=== PATIENT | female | born 1955 | race Caucasian/White ===

== ENCOUNTER 2019-07-23 09:29 | Outpatient (CLI) | payer OTHER ==
--- NOTE | 2019-07-26 05:16 | Ultrasound Report ---
Reason: ELEVATED LIVER ENZYME LEVEL Procedure Date: 07/23/2019 Accession Number: [id number] / [id number] Procedure: US - Abdomen Limited CPT Code: FULL RESULT: EXAM: ABDOMEN ULTRASOUND LIMITED, RUQ EXAM DATE: 07/23/2019 10:30 AM. CLINICAL HISTORY: ELEVATED LIVER ENZYME LEVEL. COMPARISON: None. TECHNIQUE: Real-time scanning was performed with static images obtained. FINDINGS: Liver: Normal in size and echotexture. 16.1 cm. Incidental 1.1 cm cyst in the left lobe. Main portal vein flow: Hepatopetal. Gallbladder: Cholelithiasis. No wall thickening or paracholecystic fluid. Biliary System: CBD measures 7 mm. No intrahepatic or extrahepatic ductal dilatation. Other: None. IMPRESSION: Incidental cyst in the left lobe of the liver. Cholelithiasis, without sonographic evidence of acute cholecystitis or biliary obstruction. RADIA
== END 2019-07-23 09:30 | disposition home or self-care (01) ==
LOC: DI 09:29
PROVIDERS: ATTEND Internal Medicine
DX: K80.20 Calculus of gallbladder without cholecystitis without obstruction (principal)
CPT/HCPCS: 76705

== ENCOUNTER 2019-07-23 09:33 | Outpatient (CLI) | payer OTHER ==
--- NOTE | 2019-07-29 11:43 | Mammography Report ---
Reason: SCREENING MAMMO Procedure Date: 07/23/2019 Accession Number: [id number] / [id number] Procedure: VU - Screening Mammo w/Grady CPT Code: FULL RESULT: EXAM: Screening Mammo w/Grady DATE: 07/23/2019 11:33 AM CLINICAL HISTORY: Routine screening, history of breast reduction surgery. TECHNIQUE: (B) - Bilateral CC and MLO views were obtained. COMPARISON: 06/17/2017, 02/08/2016, 01/23/2010 PARENCHYMAL PATTERN: (D) - The breasts demonstrate heterogeneously dense fibroglandular parenchyma bilaterally. FINDINGS: No significant interval change. Postreduction tissue asymmetries are similar to previous. Left more numerous than right scattered benign-appearing calcifications are also stable. There are no new suspicious masses, calcifications, or areas of distortion. IMPRESSION: Benign findings. BI-RADS category 2. RECOMMENDATION: (ANNUAL) - Recommend routine annual screening mammography. BI-RADS CATEGORY: (2) - Benign Findings. STANDARD QUALIFYING STATEMENTS: 1. This examination was not reviewed with the aid of Computer-Aided Detection (CAD). 2. A negative or benign imaging report should not preclude biopsy if clinically suspicious findings are present. 3. Dense breasts may obscure an underlying neoplasm. 4. This examination was reviewed with the aid of 3D breast imaging (tomosynthesis).
== END 2019-07-23 09:34 | disposition home or self-care (01) ==
LOC: DI 09:33
PROVIDERS: ATTEND Internal Medicine
DX: Z12.31 Encounter for screening mammogram for malignant neoplasm of breast (principal)
CPT/HCPCS: 77063; 77067

== ENCOUNTER 2020-07-09 13:16 | Outpatient (CLI) | payer MEDICARE ==
--- NOTE | 2020-07-10 14:47 | Mammography Report ---
BILATERAL DIGITAL SCREENING MAMMOGRAM 3D/2D: 07/09/2020 CLINICAL: Routine screening. Comparison is made to exams dated: 07/23/2019 mammogram and 06/17/2017 mammogram - [facility]. The tissue of both breasts is heterogeneously dense. This may lower the sensitivity of m ammography. No significant masses, calcifications, or other findings are seen in either breast. There has been no significant interval change. IMPRESSION: NEGATIVE There is no mammographic evidence of malignancy. A 1 year screening mammogram is recommended. This exam was interpreted at Station ID: [id number]. NOTE: For mammograms, a report in lay terms will be sent to the patient. Approximately 15% of breast malignancies will not be visualized mammographically. In the management of a palpable breast mass, a negative mammogram must not discourage biopsy of a clinically suspicious lesion. Electronically Signed By: Morro Walker M.D. aty/estelarad:07/10/2020 13:30:11 ACR BI-RADS Category 1: Negative 3341F PARENCHYMAL PATTERN: (D) - The breast(s) demonstrate(s) heterogeneously dense fibroglandular wilfrido silveira. BI-RADS CATEGORY: (1) - 1 RECOMMENDATION: (ANNUAL) - Recommend routine annual screening mammography. [id number] 1 year screening LATERALITY: (B)
== END 2020-07-09 13:17 | disposition home or self-care (01) ==
LOC: DI 13:16
PROVIDERS: ATTEND Family Medicine
DX: Z12.31 Encounter for screening mammogram for malignant neoplasm of breast (principal)
CPT/HCPCS: 77063; 77067

== ENCOUNTER 2020-08-15 12:14 | Outpatient (CLI) | payer MEDICARE ==
--- NOTE | 2020-08-15 15:46 | XRAY Report ---
PROCEDURE: Knee 3 View LT INDICATIONS: PAIN IN LEFT KNEE TECHNIQUE: 3 views of the left knee(s) were acquired. COMPARISON: None. FINDINGS: Bones: No fractures or dislocations, but there is a mild degree of joint space narrowing involving t he medial compartment, and elsewhere the joint appears normal.. No suspicious bony lesions. Soft tissues: No joint effusion. No suspicious soft tissue calcifications. IMPRESSION: Only a small degree of medial compartment knee joint osteoarthritic joint space narrowin g is found without evidence of prior trauma. Reviewed by: Loc Singh MD on 08/15/2020 3:44 PM PST Approved by: Loc Singh MD on 08/15/2020 3:44 PM PST Station ID: [id number]
== END 2020-08-15 12:15 | disposition home or self-care (01) ==
LOC: DI 12:14
PROVIDERS: ATTEND Nurse Practitioner Family
DX: M17.12 Unilateral primary osteoarthritis, left knee (principal)

== ENCOUNTER 2020-08-25 12:47 | Outpatient (CLI) | payer MEDICARE ==
--- NOTE | 2020-08-25 15:00 | MRI Report ---
PROCEDURE: Knee LT W/O INDICATIONS: Knee injury. TECHNIQUE: Noncontrast sagittal PD fast spin echo and T2 fast spin echo with fat saturation, sagittal 3-D gradie nt sequence with fat saturation; coronal T1 spin echo and PD fast spin echo with fat saturation, and axial PD fast spin echo with fat saturation through the knee. COMPARISON: Left knee plain films dated 08.15.20 FINDINGS: Image quality: Excellent. Menisci: Linear oblique high signal intensity within the medial meniscal body and posterior horn is p resent demonstrating inferior articular surface extension, indicating oblique tearing. Amorphous high signal intensity within the free edge of the lateral meniscal body is present, demonstrating superio r and inferior articular surface extension, indicating degenerative tearing. Cruciate ligaments: The anterior and posterior cruciate ligaments appear intact. Medial structures: There is high-grade tearing of the anterior fibers of the medial collateral ligame nt mid/superior aspects. Visualized portions of the pes anserinus tendons appear normal. No abnormal bursal fluid. Lateral structures: The lateral collateral ligament, long and short heads of the biceps femoris tend on appear intact. The popliteus tendon appears normal. Iliotibial band appears normal. Anterior structures: The quadriceps and patellar tendons appear intact. Patella aric is present. No femoral trochlear dysplasia or ventral trochlear prominence. Moderate edema in the superolateral asp ect of the infrapatellar fat pad. Bones and cartilage: No displaced fracture. There is mild ill-defined T2 signal elevation within the posterior nonweightbearing aspect of the lateral femoral condyle. Mild tricompartmental periarticula r osteophyte formation. Mild articular cartilage loss overlies the weightbearing aspects of the media l femoral condyle and medial tibial plateau. Articular cartilage fibrillation overlies the lateral pa tellar facet. Joint space: There is physiologic knee joint fluid. No [place]?s cyst. Normal appearing synovial pli are incidentally noted. IMPRESSION: 1. Contusion within the lateral femoral condyle posteriorly. No displaced fracture. 2. Medial and lateral meniscal tearing. 3. Medial collateral ligament tear. 4. Findings consistent with lateral patellofemoral friction syndrome in the appropriate clinical sett ing. 5. Tricompartmental osteoarthritis with associated articular cartilage loss. Reviewed by: Wang Rizzo MD on 08/25/2020 1:59 PM [place] Approved by: Wang Rizzo MD on 08/25/2020 1:59 PM [place] Station ID: [id number]
== END 2020-08-25 12:48 | disposition home or self-care (01) ==
LOC: DI 12:47
PROVIDERS: ATTEND Nurse Practitioner Family
DX: S80.01XA Contusion of right knee, initial encounter (principal); S83.242A Other tear of medial meniscus, current injury, left knee, initial encounter; S83.282A Other tear of lateral meniscus, current injury, left knee, initial encounter; M17.12 Unilateral primary osteoarthritis, left knee

== ENCOUNTER 2021-01-26 11:52 | Outpatient (CLI) | payer MEDICARE ==
--- NOTE | 2021-01-26 12:50 | XRAY Report ---
PROCEDURE: Hip w/Pelvis 2-3V RT INDICATIONS: right hip joint pain TECHNIQUE: AP pelvis with lateral view(s) of the right hip(s). COMPARISON: None. FINDINGS: Bones: No fractures or dislocations. Asymmetric right worse than left bilateral hip joint osteoarth ritic changes are seen. No evidence of avascular necrosis of femoral head. Degenerative disc disease in visualized lower lumbar spine is seen. Pelvic ring appears intact. No suspicious bony lesions. Soft tissues: The visualized bowel gas pattern is normal. No suspicious soft tissue calcifications. IMPRESSION: Right worse than left bilateral hip joint osteoarthritis. No fracture or dislocation. No evidence of avascular necrosis. Degenerative disc disease in lower lumbar spine. Reviewed by: Jerrell Mayer MD on 01/26/2021 12:49 PM PDT Approved by: Jerrell Mayer MD on 01/26/2021 12:49 PM PDT Station ID: [id number]
== END 2021-01-26 11:53 | disposition home or self-care (01) ==
LOC: DI 11:52
PROVIDERS: ATTEND Physician Assistant
DX: M16.0 Bilateral primary osteoarthritis of hip (principal); M51.36 Other intervertebral disc degeneration, lumbar region

== ENCOUNTER 2022-06-13 15:15 | Outpatient (CLI) | payer MEDICARE ==
--- NOTE | 2022-06-13 23:32 | XRAY Report ---
PROCEDURE: Lumbar Spine 2 View INDICATIONS: POSTMENOPAUSAL, RIGHT HIP AND BACK PAIN TECHNIQUE: 2 views of the lumbar spine were acquired. COMPARISON: None available FINDINGS: Bones: 5 [id number] vertebrae are present. There is normal bony alignment. No vertebral body compression fractures. No suspicious bony lesions. Severe multilevel disc height loss with endplate sclerosis and spurring. Moderate facet joint arthropathy at the L5-S1 level. Diffuse osteopenia. Soft tissues: Overlying bowel gas pattern is normal. No suspicious soft tissue calcifications. IMPRESSION: Multilevel lumbar spine spondylosis. Reviewed by: SANTANA Ureña on 06/13/2022 11:37 PM PDT Approved by: Joi Strickland MD on 06/13/2022 11:37 PM PDT Station ID: [id number]
--- NOTE | 2022-06-13 23:32 | XRAY Report ---
PROCEDURE: Hip w/Pelvis 2-3V RT INDICATIONS: POSTMENOPAUSAL, RIGHT HIP AND BACK PAIN TECHNIQUE: AP pelvis with lateral view(s) of the right hip(s). COMPARISON: None available. FINDINGS: Bones: No fractures or dislocations. Pelvic ring appears intact. No suspicious bony lesions. Sever e asymmetric right hip joint space narrowing with periarticular osteophyte formation. Moderate left h ip joint degeneration. Soft tissues: The visualized bowel gas pattern is normal. No suspicious soft tissue calcifications. IMPRESSION: Severe right and moderate left hip joint degeneration. Reviewed by: SANTANA Ureña on 06/13/2022 11:37 PM PDT Approved by: Joi Strickland MD on 06/13/2022 11:37 PM PDT Station ID: [id number]
--- NOTE | 2022-06-13 23:32 | XRAY Report ---
PROCEDURE: Thoracic Spine 2 View INDICATIONS: POSTMENOPAUSAL, RIGHT HIP AND BACK PAIN TECHNIQUE: 2 views of the thoracic spine were acquired. COMPARISON: None available FINDINGS: Bones: No fractures or dislocations. No suspicious bony lesions. 12 pairs of ribs are noted, and a ppear intact where visualized. Mild multilevel disc height loss with endplate sclerosis and spurring . Soft tissues: No paravertebral stripe thickening. IMPRESSION: Mild multilevel disc degeneration. Reviewed by: SANTANA Ureña on 06/13/2022 11:38 PM PDT Approved by: Joi Strickland MD on 06/13/2022 11:38 PM PDT Station ID: [id number]
== END 2022-06-13 15:16 | disposition home or self-care (01) ==
LOC: DI 15:15
PROVIDERS: ATTEND Nurse Practitioner Family
DX: M16.0 Bilateral primary osteoarthritis of hip (principal); M51.36 Other intervertebral disc degeneration, lumbar region; M47.816 Spondylosis without myelopathy or radiculopathy, lumbar region; M85.88 Other specified disorders of bone density and structure, other site; M51.34 Other intervertebral disc degeneration, thoracic region

== ENCOUNTER 2022-07-11 11:00 | Outpatient (CLI) | payer MEDICARE ==
--- NOTE | 2022-07-12 12:15 | Mammography Report ---
BILATERAL DIGITAL SCREENING MAMMOGRAM 3D/2D: 07/11/2022 CLINICAL: Routine screening. Comparison is made to exams dated: 07/09/2020 mammogram, 07/23/2019 mammogram, and 06/17/2017 mammogra m - [facility]. Both breasts are heterogeneously dense, which may obscure small masses (category c / 51-75% glandula r tissue). There are calcifications in both breasts. No significant masses, calcifications, or other findings are seen in either breast. There has been no significant interval change. IMPRESSION: BENIGN There is no mammographic evidence of malignancy. A 1 year screening mammogram is recommended. Based on the Tyrer Cuzick model (a risk assessment model) the patients lifetime risk is 14.4% and he r 10 year risk is 8.7%. According to the ACR, ACS, and NCCN guidelines, an annual breast MRI exam ludy ng with mammogram is recommended if the patients lifetime risk is 20% or greater. This exam was interpreted at Station ID: [id number]. NOTE: For mammograms, a report in lay terms will be sent to the patient. Approximately 15% of breast malignancies will not be visualized mammographically. In the management of a palpable breast mass, a negative mammogram must not discourage biopsy of a clinically suspicious lesion. Electronically Signed By: Morro Walker M.D. aty/:07/11/2022 12:46:49 ACR BI-RADS Category 2: Benign Finding(s) 3342F PARENCHYMAL PATTERN: (D) - The breast(s) demonstrate(s) heterogeneously dense fibroglandular wilfrido silveira. BI-RADS CATEGORY: (2) - 2 RECOMMENDATION: (ANNUAL) - Recommend routine annual screening mammography. [id number] 1 year screening LATERALITY: (B)
== END 2022-07-11 11:01 | disposition home or self-care (01) ==
LOC: DI 11:00
PROVIDERS: ATTEND Nurse Practitioner Family
DX: Z12.31 Encounter for screening mammogram for malignant neoplasm of breast (principal)

== ENCOUNTER 2022-07-11 11:01 | Outpatient (CLI) | payer MEDICARE ==
--- NOTE | 2022-07-11 15:31 | DEXA Report ---
PROCEDURE: Dexa Spine and/or Hip INDICATIONS: POSTMENOPAUSAL, RIGHT HIP AND BACK PAIN TECHNIQUE: Dual energy x-ray absorptiometry (DXA) was performed on a [employer] System. Regions measur ed are the AP Spine, femoral neck, and if needed forearm. COMPARISON: None. FINDINGS: Lumbar Spine: Bone Mineral Density 1.556 g/cm/cm,T score 3.1, normal. Degenerative changes are present in the sp ine which may make bone mineral density measurements less reliable. Left Hip: Bone Mineral Density 0.827 g/cm/cm,T score -1.4, osteopenia. Left Femoral Neck: Bone Mineral Density 0.831 g/cm/cm, T score -1.5, osteopenia. (T score greater or equal to -1.0: NORMAL) (T score from -1.1 to -2.4: OSTEOPENIA) (T score less than or equal to -2.5 to: OSTEOPOROSIS) Impression: Bone mineral density within the osteopenia range at the left hip and left femoral neck. Patients with diagnosis of osteoporosis or osteopenia should have regular bone mineral density assess ment. For those eligible for Medicare, routine testing is allowed once every 2 years. Testing frequ ency can be increased for patients who have rapidly progressing disease or for those who are receivin g medical therapy to restore bone mass. Reviewed by: Corky Garcia MD on 07/11/2022 3:29 PM PDT Approved by: Corky Garcia MD on 07/11/2022 3:29 PM PDT Station ID: [id number]
== END 2022-07-11 11:02 | disposition home or self-care (01) ==
LOC: DI 11:01
PROVIDERS: ATTEND Nurse Practitioner Family
DX: M85.89 Other specified disorders of bone density and structure, multiple sites (principal); Z78.0 Asymptomatic menopausal state

== ENCOUNTER 2023-01-21 09:33 | Outpatient (CLI) | payer MEDICARE ==
--- NOTE | 2023-01-21 09:24 | CARDIAC PROCEDURE NOTE ---
Stress Test Report Service Date: 01/21/23 Service Time: 09:30 Ordering Provider: Gayatri Millna NP Indication for Test: Assess mechanism of exertional dyspnea in patient who is pre-op for elective hip replacement. Significant Medical History: Rhiannon reports progressive right hip pain over the past few years, limiting her exertional tolerance and for which she is scheduled to undergo elective total hip replacement in about 4 months. With the decrease in activity she has found herself to be gradually more short of breath when she is active, especially during the past month or so. She became more attentive to such symptoms in the wake of a friend's sudden at that time. She does not do a lot of walking these days, though is able to complete usual household tasks such as housecleaning and cooking, without limiting shortness of breath. She denies any resting dyspnea, orthopnea, palpitations and chest discomfort of any type. Cardiac Risk Factors: Positive for hypertension, hyperlipidemia and family history of atherosclerotic vascular disease (father and brother with CAD, three grandparents with stroke history); has remote and likely non-contributory cigarette smoking history (<10 pack-years, quit 1988); no history of diabetes. Type of Stress Test: ETT with Echocardiography Procedure: -Exercise Treadmill Test- After signing informed consent, the patient underwent echo imaging at rest and then performed treadmill exercise using a Modified Rodriguez protocol. The patient exercised for 12 minutes 15 seconds and achieved a peak heart rate of 160 (105 percent predicted maximum heart rate for age), and an estimated workload of 7.4 METS. The test was terminated due to fatigue/shortness of breath; the latter was gradual in onset, starting in stage 4. Resting heart rate: 93 Peak heart rate: 160 Normal response to exercise. Resting BP: 143/89 Peak BP: 206/83 Mildly increased resting systolic BP at test initiation (though BP was initially recorded at 125/67), with physiologic increase in systolic BP and normal mild decline of diastolic BP in response to exercise. Rhythm during exercise: Sinus rhythm throughout. Symptoms: The patient's primary concern was progressive right hip and lower back pain; she was not significantly dyspneic until well into stage 4 and she experienced no chest discomfort whatsoever. EKG at rest showed normal sinus rhythm with borderline QTc of 465 msec; there was mildly abnormal precordial R-wave progression, with R wave magnitude in V2 of 3 mm and 2 mm in V3, but lead placement was confirmed as being correct. EKG at peak stress showed J-point depression with upsloping ST segments NOT meeting diagnostic criteria for ischemia. In Recovery HR rapidly and normally decreased towards baseline, with slower return of BP towards baseline level (last recorded 164/80 at 5:00). Echo imaging, performed at rest and with stress, will be reported separately. Sy Resendiz MD, was present throughout this treadmill stress study and supervised it in its entirety. Summary: 1) Exercise tolerance well above average for age and sex as evidenced by YAHAIRA of -25%. 2) Borderline resting EKG (but with normal and interpretable ST segments). 3) Adequate level of exercise was achieved on this treadmill stress test. 4) Mildly elevated resting systolic LAURA with normal BP response to exercise. 5) No ischemic changes by EKG criteria were seen at peak stress. 6) Echo image interpretation reveals normal left ventricular size and systolic function, with appropriate hyperdynamic augmentation of all segments with exercise, with increase of left ventricular ejection fraction to >75%, indicating no evidence of prior infarct or inducible ischemia. There were no abnormalities of LV wall thickness, valve morphology or elevated estimated right ventricular/pulmonary artery systolic pressure detected on baseline screening. LV diastolic function was not completely assessed. See separate report for more details. Conclusions and Recommendations: 1) Reassuring stress echocardiogram study, NOT demonstrating early onset of exertional dyspnea, with above average exercise capacity and no evidence of inducible ischemia. Alternate explanations for her perceived exertional dyspnea include diastolic dysfunction and/or de-conditioning. 2) With the absence of other cardiovascular symptoms (e.g. palpitations, chest discomfort, edema), cardiology consultation at this time should be considered discretionary. 3) Given that the patient recently started rosuvastatin for long-term cardiovascular risk reduction it would be appropriate for her to have fasting lipid and hepatic panels done, to document achievement of target LDL cholesterol level appropriate for primary prevention (e.g. <100 mg/dL) without elevation of AST/ALT.
[2023-01-21] MEDS ORDERED: PERFLUTREN LIPID MICROSPHERES 1.65 MG/1.5 ML VIAL IVP ONE (12:17)
== END 2023-01-21 09:34 | disposition home or self-care (01) ==
LOC: DI 09:33
PROVIDERS: ATTEND Nurse Practitioner Family
DX: R06.00 Dyspnea, unspecified (principal); M25.551 Pain in right hip; I10 Essential (primary) hypertension; E78.5 Hyperlipidemia, unspecified; Z82.49 Family history of ischemic heart disease and other diseases of the circulatory system; Z87.891 Personal history of nicotine dependence
CPT/HCPCS: 93350; Q9957

== ENCOUNTER 2023-12-10 15:37 | Outpatient (CLI) | payer MEDICARE ==
--- NOTE | 2023-12-10 16:16 | XRAY Report ---
PROCEDURE: Shoulder 2+V LT INDICATIONS: SHOULDER PAIN TECHNIQUE: 3 views of the shoulder were acquired. COMPARISON: None. FINDINGS: Bones: Moderate acromioclavicular and glenohumeral degenerative changes. No displaced fracture or di slocation. Soft tissues: No suspicious calcifications. IMPRESSION: Moderate degenerative changes. If there is high concern for further derangement, consider MRI evaluat ion. Reviewed by: Cory Krishnan MD on 12/10/2023 4:14 PM PST Approved by: Cory Krishnan MD on 12/10/2023 4:14 PM PST Station ID: [id number]
== END 2023-12-10 15:38 | disposition home or self-care (01) ==
LOC: DI 15:37
PROVIDERS: ATTEND Registered Nurse
DX: M19.012 Primary osteoarthritis, left shoulder (principal)

== ENCOUNTER 2024-02-08 07:49 | Emergency (ER) | payer MEDICARE ==
[2024-02-08 08:14] LABS: BASOPHILS % (AUTO) 0.4 %; EOSINOPHILS % (AUTO) 0.4 %; HCT - HEMATOCRIT 42.1 % (37.0-47.0); LYMPHOCYTES # (AUTO) 1.2 10^3/uL (1.5-3.5); LYMPHOCYTES % (AUTO) 12.2 %; MEAN CORPUSCULAR HEMOGLOBIN 32.5 pg (27.0-31.0); MEAN CORPUSCULAR HGB CONC 33.3 g/dL (32.0-36.0); MEAN CORPUSCULAR VOLUME 97.7 fL (81.0-99.0); MEAN PLATELET VOLUME 9.1 fL (7.9-10.8); MONOCYTES # (AUTO) 0.8 10^3/uL (0.0-1.0); MONOCYTES % (AUTO) 7.8 %; NEUTROPHILS # (AUTO) 7.7 10^3/uL (1.5-6.6); NEUTROPHILS % (AUTO) 79.1 %; PLT - PLATELET COUNT 179 10^3/uL (130-450); RED BLOOD COUNT 4.31 10^6/uL (4.20-5.40); RED CELL DISTRIBUTION WIDTH 13.2 % (12.0-15.0); WHITE BLOOD COUNT 9.8 x10^3/uL (4.8-10.8)
--- NOTE | 2024-02-08 08:19 | ED Physician Documentation ---
PD HPI ABD PAIN - Stated complaint Stated Complaint: LWR ABD PX - Chief complaint Chief Complaint: Abd Pain - History obtained from History obtained from: Patient - History of Present Illness Timing - onset: Last night, Yesterday Timing - duration: Hours Timing - details: Abrupt onset, Still present Quality: Cramping, Aching, Pain Associated symptoms: Nausea. No: Fever, Vomiting, Diarrhea Similar symptoms before: Has not had sx before Review of Systems Constitutional: denies: Fever, Chills Respiratory: denies: Cough GI: reports: Abdominal Pain, Nausea. denies: Vomiting, Constipation : denies: Dysuria PD PAST MEDICAL HISTORY - Past Medical History Cardiovascular: Hypertension Respiratory: None Neuro: None Endocrine/Autoimmune: None GI: None VETERINARY ATTENDANT: None : None HEENT: None Psych: None Musculoskeletal: None Derm: None - Past Surgical History Past Surgical History: Yes Ortho: Hip replacement - Present Medications Home Medications: Ambulatory Orders Medication Instructions Recorded Confirmed Amox/Clav 875/125 [Augmentin] 1 each PO BID #10 tablet 02/08/24 Docusate Sodium 100Mg Capsule 100 mg PO DAILY #10 cap 02/08/24 [Colace 100Mg Capsule] HYDROcod/ACETAM 5/325 [[place] 5/325] 1 ea PO Q6H PRN #18 tablet 02/08/24 Meloxicam [Mobic] 7.5 mg PO BID 10 Days #20 tablet 02/08/24 Ondansetron Odt [Zofran] 4 mg TL Q6H PRN #20 tablet 02/08/24 - Allergies Allergies/Adverse Reactions: Allergies Allergy/AdvReac Type Severity Reaction Status Date / Time No Known Drug Allergies Allergy Verified 02/08/24 08:04 - Social History Does the pt smoke?: No Smoking Status: Never smoker Does the pt drink ETOH?: Yes ETOH Use: Liquor Does the pt have substance abuse?: No - Immunizations Immunizations are current?: Yes PD ED PE NORMAL - Vitals Vital signs reviewed: Yes - General General: Alert and oriented X 3, Well developed/nourished, Other (appears uncomfortable due to pain left lower abd. ) - Cardiac Cardiac: RRR, No murmur - Respiratory Respiratory: No respiratory distress, Clear bilaterally - Abdomen Abdomen: Normal bowel sounds, Soft, Non distended, Other (tender lower to mid left abd. No guarding nor percussion tender. ) Results - Vitals Vitals: Vital Signs - 24 hr 02/08/24 02/08/24 07:58 10:03 Temperature 36.7 C Heart Rate 93 82 Respiratory 18 18 Rate Blood Pressure 186/91 H 162/82 H O2 Saturation 98 Oxygen O2 Source Room air - Labs Labs: Laboratory Tests 02/08/24 02/08/24 02/08/24 08:03 08:03 09:15 WBC 9.8 RBC 4.31 Hgb 14.0 Hct 42.1 MCV 97.7 MCH 32.5 H MCHC 33.3 RDW 13.2 Plt Count 179 MPV 9.1 Neut # (Auto) 7.7 H Lymph # (Auto) 1.2 L Parker # (Auto) 0.8 Eos # (Auto) 0.0 Baso # (Auto) 0.0 Absolute Nucleated RBC 0.00 Nucleated RBC % 0.0 Sodium 135 Potassium 4.3 Chloride 103 Carbon Dioxide 24 Anion Gap 8.0 BUN 19 Creatinine 0.7 Estimated GFR (MDRD) 83 L Glucose 129 H Calcium 9.8 Total Bilirubin 0.5 AST 19 ALT 23 Alkaline Phosphatase 65 Total Protein 7.2 Albumin 4.3 Globulin 2.9 Albumin/Globulin Ratio 1.5 Lipase 27 Urine Color YELLOW Urine Clarity CLEAR Urine pH 8.0 H Ur Specific [place] 1.010 Urine Protein NEGATIVE Urine Glucose (UA) NEGATIVE Urine Ketones NEGATIVE Urine Occult Blood NEGATIVE Urine Nitrite NEGATIVE Urine Bilirubin NEGATIVE Urine Urobilinogen 0.2 (NORMAL) Ur Leukocyte Esterase NEGATIVE Ur Microscopic Review NOT INDICATED Urine Culture Comments NOT INDICATED PD Medical Decision Making - ED course Complexity details: reviewed results (CT showing area of uncomplicated diverticulitis sigmoid colon. White count is normal and she does not have fever, but the onset was brisk and so I am concerned about infectious as well as inflammatory development. ), considered differential (pain/tender left lower. Consider diverticular, UTI, stone, vascular. It was abrupt and awoke from sleep several hours ago, so not typical for divertcular, and I would be concerned for other process. ), d/w patient, d/w family (spouse) ED course: abrupt onset pain during night, with labs having normal WBC, and CT shoiwng uncomplicated diverticulitis. No more serious cause, such as vascular. Will treat with NSAIDs, diet soft, nausea and pain meds, but also abx given the abruptness of symptoms, I am concerned about quick progression. Departure - Departure Disposition: 01 Home, Self Care Clinical Impression: Acute abdominal pain in left lower quadrant, Acute diverticulitis of intestine Condition: Stable Record reviewed to determine appropriate education?: Yes Instructions: ED Diverticulitis Follow-Up: Shanti Coyle ARNP [Primary Care Provider] - Prescriptions: Amox/Clav 875/125 [Augmentin] 1 each PO BID #10 tablet Docusate Sodium 100Mg Capsule [Colace 100Mg Capsule] 100 mg PO DAILY #10 cap Meloxicam [Mobic] 7.5 mg PO BID 10 Days #20 tablet HYDROcod/ACETAM 5/325 [[place] 5/325] 1 ea PO Q6H PRN #18 tablet PRN Reason: Pain Ondansetron Odt [Zofran] 4 mg TL Q6H PRN #20 tablet PRN Reason: Nausea / Vomiting Comments: Your CT scan is showing an area of acute diverticulitis without any signs of perforation or abscess. This commonly is inflammatory without yet infection though the progression of it can lead to infection. At this point most of the gastroenterology guidelines would suggest going out it with bland food and frequent fluids to stay well-hydrated, some anti- inflammatories and perhaps a mild stool softener. To that then add medications for symptoms to include ondansetron for nausea and Tylenol if needed for pain every 4-6 hours. Add hydrocodone if needed for worse pain. See how you do over the next day or 2 and if it is improving readily then continue with those treatments for several days to week. If not improving to readily or seems a little increasing, then add Augmentin antibiotic twice daily for 5 days. I wrote prescriptions for all these and sent them to the [facility] pharmacy in [place] as the [facility] pharmacy is closed today on Friday. If you have increased pain or bloody stool, fever, generalized pain or other concerns and certainly return to the ER for recheck. I am prescribing a short course of narcotic pain medication for you. These are potentially dangerous and addictive medications that should be used carefully. These medications may constipate you. Take an [id number] stool softener such as docusate twice daily with plenty of water while taking these medications. If you go 24 hours without a bowel movement, take [id number] MiraLAX, per package instructions. Do not drink or drive while taking these medications. If you received narcotic or sedating medications while in the emergency department do not drive for 24 hours. Store this medication in a safe, secure place and out of reach of children. It is a violation of federal law to give or sell this medication to another person or to use in a manner other than prescribed. The ED will not refill narcotic prescriptions, including prescriptions lost or stolen. You can dispose of unwanted medications at the [facility]'s office or at several pharmacies such as [facility]. Forms: PCP List Discharge Date/Time: 02/08/24 10:23
[2024-02-08 08:27] LABS: ALBUMIN 4.3 g/dL (3.2-5.5); ALBUMIN/GLOBULIN RATIO 1.5 (1.0-2.2); BILIRUBIN,TOTAL 0.5 mg/dL (0.2-1.0); CALCIUM 9.8 mg/dL (8.5-10.3); CREATININE 0.7 mg/dL (0.6-1.3); POTASSIUM 4.3 mmol/L (3.5-4.5); TOTAL PROTEIN 7.2 g/dL (6.4-8.9)
[2024-02-08] MEDS ORDERED: iohexoL-300 100 ML VIAL ONE (08:33)
[2024-02-08] MEDS: ONDANSETRON 4 MG/2 ML VIAL IVP STA (08:38)
[2024-02-08] MEDS: KETOROLAC 15 MG/ML VIAL IVP STA (08:38)
[2024-02-08] MEDS: iohexoL-300 100 ML VIAL IVP ONE (08:51)
--- NOTE | 2024-02-08 09:06 | CT Report ---
PROCEDURE: Abdomen/Pelvis W INDICATIONS: lower/left abd pain onset 3 am CONTRAST: 100ml omni 300 TECHNIQUE: After the administration of intravenous contrast, a CT scan of the abdomen and pelvis was performed. Images were recorded and evaluated at appropriate window settings. Reformats: coronal and sagittal. F or radiation dose reduction, the following was used: automated exposure control, adjustment of mA and /or kV according to patient size. COMPARISON: None. FINDINGS: Image quality: Diagnostic. Lower chest: Unremarkable. Liver: No solid mass. Gallbladder and biliary tree: No radiopaque stones or wall thickening. No biliary dilation. Spleen: No splenomegaly. Pancreas: No pancreatic ductal dilation. Adrenals: No adrenal nodule. Kidneys and ureters: No hydronephrosis. No renal cystic lesion which requires follow up. No solid mas s. A small simple right renal cyst. Stomach, bowel and peritoneum: Small hiatal hernia. Multiple colonic diverticula are seen. There is n o wall thickening and mild stranding adjacent to the sigmoid colon that is suspicious for acute diver ticulitis. No pneumoperitoneum. No focal fluid collection. No signs of bowel obstruction. Small bowel loops are unremarkable. Lymph nodes: No central or retroperitoneal adenopathy. Vessels: No infrarenal aortic aneurysm. PELVIS Reproductive organs: Unremarkable. Bladder: No abnormal wall thickening, accounting for underdistention. Pelvic lymph nodes: No pelvic adenopathy by size criteria. Bones: No aggressive osseous abnormality. Right hip arthroplasty is seen with associated streak artif act. Degenerative changes are seen in the included spine. Other: No significant ventral or inguinal hernia. IMPRESSION: Acute uncomplicated sigmoid diverticulitis. Reviewed by: Corky Garcia MD on 02/08/2024 9:04 AM PDT Approved by: Corky Garcia MD on 02/08/2024 9:04 AM PDT Station ID: [id number]
[2024-02-08 09:26] LABS: BILIRUBIN,URINE NEGATIVE (NEGATIVE); GLUCOSE, URINE (UA) NEGATIVE (NEGATIVE); KETONES,URINE (UA) NEGATIVE (NEGATIVE); LEUKOCYTE ESTERASE, URINE NEGATIVE (NEGATIVE); NITRITE,URINE NEGATIVE (NEGATIVE); OCCULT BLOOD,URINE NEGATIVE (NEGATIVE); PROTEIN,URINE NEGATIVE (NEGATIVE); UROBILINOGEN,URINE 0.2 (NORMAL) E.U./dL (NORMAL)
[2024-02-08 09:28] LABS: CLARITY,URINE CLEAR (CLEAR)
[2024-02-08 10:28] VITALS: BP 162/82; O2SAT 98
== END 2024-02-08 10:23 | disposition home or self-care (01) ==
LOC: ED 07:49
DX: K57.32 Diverticulitis of large intestine without perforation or abscess without bleeding (principal)
CPT/HCPCS: 36415; 74177; 80053; 81003; 83690; 85025; 96374; 99283; 99284; Q9967; 81001; 87086

== ENCOUNTER 2024-03-12 14:38 | Outpatient (CLI) | payer MEDICARE ==
--- NOTE | 2024-03-12 15:18 | XRAY Report ---
PROCEDURE: Shoulder 2+V RT INDICATIONS: ROTATOR CUFF SYNDROME TECHNIQUE: 3 views of the shoulder were acquired. COMPARISON: X-ray shoulder 11/04/2023 FINDINGS: Bones: No fractures or dislocations. No suspicious bony lesions. Visualized ribs appear intact. Unchanged appearance of moderate to severe acromioclavicular and glenohumeral arthritic change. No er osions. Humeral head is mildly high riding. Soft tissues: No suspicious soft tissue calcifications. The visualized lungs are within normal limi ts. IMPRESSION: Acromioclavicular and glenohumeral arthritic change. High riding humeral head which can be seen with rotator cuff pathology. Reviewed by: Joi Strickland MD on 03/12/2024 3:17 PM PDT Approved by: Joi Strickland MD on 03/12/2024 3:17 PM PDT Station ID: [id number]
== END 2024-03-12 14:39 | disposition home or self-care (01) ==
LOC: DI 14:38
PROVIDERS: ATTEND Physician Assistant Surgical
DX: M19.011 Primary osteoarthritis, right shoulder (principal)